=== PATIENT | female | born 1960 | race Caucasian/White ===

== ENCOUNTER 2017-03-07 14:08 | Emergency (ER) | payer MEDICAID ==
[2017-03-07] MEDS ORDERED: HYDROCODONE/APAP 5/325MG TABLET PO ONE (15:18)
--- NOTE | 2017-03-07 16:10 | Emergency Department Record ---
History of Present Illness - General Chief complaint: Extremity Problem Stated complaint: INJ LEFT WRIST Time Seen by Provider: 03/07/17 14:50 Source: Patient Mode of Arrival: Ambulatory Limitations: No limitations - History of Present Illness Initial comments: pt fell on outstretched hand injuring l wrist Complaint: Extremity pain, Extremity swelling, Joint pain, Joint swelling Onset/Timin -: Days(s) Location: Left, Arm Severity scale (1-10): 8 Quality: Aching Consistency: Constant Improves with: Rest Worsens with: Exertion, Palpation Associated Symptoms: Denies other symptoms - Related Data Home Medications Medication Instructions Recorded Confirmed Last Taken Budesonide/Formoterol Fumarate 10.2 gm IH DAILY 03/07/17 03/07/17 1 Day Ago [Symbicort 160-4.5 Mcg Inhaler] ~03/06/17 Cholecalciferol (Vitamin D3) 2,000 unit PO DAILY 03/07/17 03/07/17 1 Day Ago [Vitamin D3] ~03/06/17 Fluoxetine HCl [Prozac] 40 mg PO DAILY 03/07/17 03/07/17 1 Day Ago ~03/06/17 Vitamin B Complex 1 each PO DAILY 03/07/17 03/07/17 1 Day Ago ~03/06/17 Previous Rx's Medication Instructions Recorded Hydrocodone/Acetaminophen [Jasper 1 each PO QID #20 tablet 03/07/17 5-325 Tablet] Allergies Allergy/AdvReac Type Severity Reaction Status Date / Time Penicillins Allergy HYPERSENSIT Verified 03/07/17 14:24 IVITY Travel Screening - Travel/Exposure Within Last 30 Days Have you traveled within the last 30 days?: No - Travel/Exposure Within Last Year Have you traveled outside the [place] in the last year?: No - Additonal Travel Details Have you been exposed to anyone with a communicable illness?: No - Travel Symptoms Symptom Screening: None Review of Systems Reviewed: No additional complaints except as noted below Constitutional: Reports: As per HPI. Denies: Chills, Fever, Malaise, Night sweats, Weakness, Weight change Eyes: Reports: As per HPI. Denies: Eye discharge, Eye pain, Photophobia, Vision change ENT: Reports: As per HPI. Denies: Congestion, Dental pain, Ear pain, Epistaxis , Hearing loss, Throat pain Respiratory: Reports: As per HPI. Denies: Cough, Dyspnea, Hemoptysis, Stridor, Wheezes Cardiovascular: Reports: As per HPI. Denies: Arrhythmia, Chest pain, Dyspnea on exertion, Edema, Murmurs, Orthopnea, Palpitations, Paroxysmal nocturnal dyspnea, Rheumatic Fever, Syncope Endocrine: Reports: As per HPI. Denies: Fatigue, Heat or cold intolerance, Polydipsia, Polyuria Gastrointestinal: Reports: As per HPI. Denies: Abdominal pain, Constipation, Diarrhea, Hematemesis, Hematochezia, Melena, Nausea, Vomiting Genitourinary: Reports: As per HPI. Denies: Abnormal menses, Discharge, Dyspareunia, Dysuria, Frequency, Hematuria, Incontinence, Retention, Urgency Musculoskeletal: Reports: As per HPI. Denies: Arthralgia, Back pain, Gout, Joint swelling, Myalgia, Neck pain Skin: Reports: As per HPI. Denies: Bruising, Change in color, Change in hair/ nails, Lesions, Pruritus, Rash Neurological: Reports: As per HPI. Denies: Abnormal gait, Confusion, Headache, Numbness, Paresthesias, Seizure, Tingling, Tremors, Vertigo, Weakness Psychiatric: Reports: As per HPI. Denies: Anxiety, Auditory hallucinations, Depression, Homicidal thoughts, Suicidal thoughts, Visual hallucinations Hematological/Lymphatic: Reports: As per HPI. Denies: Anemia, Blood Clots, Easy bleeding, Easy bruising, Swollen glands Past Medical History - SOCIAL HISTORY Smoking Status: Former smoker Alcohol Use: Occasional Drug Use Detail:: Marijuana - RESPIRATORY Hx Asthma: Yes Comment:: seasonal allergies - CARDIOVASCULAR Hx Irregular Heartbeat: Yes - NEURO Hx Neuro Disorders: No - GI Hx GI Disorders: No - Hx Genitourinary Disorders: No - ENDOCRINE Hx Diabetes: No Hx Thyroid Disease: No - MUSCULOSKELETAL Hx Arthritis: Yes - PSYCH Hx Anxiety: Yes Hx Depression: Yes - HEMATOLOGY/ONCOLOGY Hx Hematology/Oncology Disorders: No Family Medical History Any Significant Family History?: Yes Physical Exam - General General Appearance: Alert, Oriented x3, Cooperative, Mild distress - Head Head exam: Normal inspection - Eye Eye exam: Normal appearance, PERRL, EOMI Pupils: Normal accommodation - ENT ENT exam: Normal exam, Mucous membranes moist, Normal external ear exam, Normal orophraynx Ear exam: Normal external inspection. negative: External canal tenderness Nasal Exam: Normal inspection. negative: Discharge, Sinus tenderness Mouth exam: Normal external inspection, Tongue normal Teeth exam: Normal inspection. negative: Dental caries Throat exam: Normal inspection. negative: Tonsillar erythema, Tonsillar exudate - Neck Neck exam: Normal inspection, Full ROM. negative: Tenderness - Respiratory Respiratory exam: Normal lung sounds bilaterally. negative: Respiratory distress - Cardiovascular Cardiovascular Exam: Regular rate, Normal rhythm, Normal heart sounds - GI/Abdominal GI/Abdominal exam: Soft, Normal bowel sounds. negative: Tenderness - Rectal Rectal exam: Deferred - exam: Deferred - Extremities Extremities exam: Normal capillary refill, Tenderness (l wrist). negative: Normal inspection, Full ROM - Back Back exam: Reports: Normal inspection, Full ROM. Denies: Muscle spasm, Rash noted, Tenderness - Neurological Neurological exam: Alert, CN II-XII intact, Normal gait, Oriented X3 - Psychiatric Psychiatric exam: Normal affect, Normal mood - Skin Skin exam: Dry, Intact, Normal color, Warm Course Vital Signs 03/07/17 14:14 Temperature 98.6 F Pulse Rate 94 H Respiratory 18 Rate Blood Pressure 121/70 Pulse Ox 96 Disposition Disposition: Discharge Clinical Impression: Other intraarticular fracture of lower end of left radius, initial encounter for open fracture type IIIA, IIIB, or IIIC Disposition: Home, Self-Care Condition: (1) Good Instructions: Wrist Fracture in Adults (ED) Additional Instructions: follow up with orthopedic doctor. return sooner if worse. ice and elevate. motrin with food Prescriptions: Hydrocodone/Acetaminophen [Jasper 5-325 Tablet] 1 each PO QID #20 tablet Referrals: BRITTA CARBAJAL [DOCTOR OF OSTEOPATH] - Forms: Patient Portal Access Quality - Quality Measures Quality Measures: N/A - Blood Pressure Screening Blood Pressure Classification: Pre-Hypertensive BP Reading Systolic Measurement: 121 Diastolic Measurement: 70 Screening for High Blood Pressure: < Normal BP, F/U Not Required > [[id number]] Normal BP Follow-up Interventions: No follow-up required
--- NOTE | 2017-03-09 08:48 | RADIOLOGY REPORT ---
EXAM: LEFT WRIST, FOUR VIEWS HISTORY: FALL, LEFT WRIST INJURY AND PAIN. TECHNIQUE: Four views of the left wrist were obtained. Comparison: None. Encounter: Initial. FINDINGS: There is an acute nondisplaced intraarticular fracture of the distal left radial metaphysis which extends to the junction of the lunate and scaphoid fossae. Effacement of the pronator fat pad. Mild to moderate arthritic change left first carpal metacarpal joint. IMPRESSION: ACUTE NONDISPLACED INTRAARTICULAR FRACTURE OF THE DISTAL LEFT RADIUS EXTENDING TO THE JUNCTION OF THE LUNATE AND SCAPHOID FOSSAE. JOB NUMBER: [id number] MTDD
== END 2017-03-07 16:28 | disposition home or self-care (01) ==
LOC: ER 14:08
DX: S52.592A Other fractures of lower end of left radius, initial encounter for closed fracture (principal); W01.0XXA Fall on same level from slipping, tripping and stumbling without subsequent striking against object, initial encounter; Y93.01 Activity, walking, marching and hiking; Y92.480 Sidewalk as the place of occurrence of the external cause
CPT/HCPCS: 99283